=== PATIENT | female | born 1980 | race Caucasian/White ===

== ENCOUNTER 2021-12-02 06:30 | Day surgery (SDC) | payer BC ==
[2021-11-29 13:10] LABS: CARBON DIOXIDE,CO2 26.1 mmol/L (21.0-32.0); POTASSIUM,K 4.3 mmol/L (3.5-5.1)
[~2021-12-02 06:30] MED LIST: Clindamycin Phosphate in D5W 900 MG in Premix Bag 1 BAG IV SCH; GENTAMICIN IV ONE; Gentamicin Pediatric 10 MG/ML 2 ML SDV IV ONE; Lactated Ringers 1,000 ML IV SCH; SODIUM CHLORIDE 0.9% IV ONE; Sodium Chloride 0.9% 10 ML Syringe FLUSH PRN; Sodium Chloride 0.9% 2.5 ML Syringe FLUSH PRN; Sodium Chloride 0.9% 20 ML SDV IV PRN
[2021-12-02] MEDS ORDERED: Rocuronium Bromide 50 MG/5 ML Syringe ONE (07:24)
[2021-12-02] MEDS ORDERED: Dexamethasone 4 MG/ML 5 ML MDV ONE (07:24)
[2021-12-02] MEDS ORDERED: Lidocaine 2% 5 ML SDV ONE (07:24)
[2021-12-02] MEDS ORDERED: Midazolam 1 MG/ML 2 ML SDV ONE (07:24)
[2021-12-02] MEDS ORDERED: Sugammadex Sodium 200 MG/2 ML VIAL ONE (07:24)
[2021-12-02] MEDS ORDERED: Propofol 200 MG/20 ML SDV ONE (07:24)
[2021-12-02] MEDS ORDERED: Ondansetron 4 MG/2 ML SDV ONE (07:24)
[2021-12-02] MEDS ORDERED: fentaNYL 250 MCG/5 ML SDV ONE (07:25)
[2021-12-02] MEDS ORDERED: HYDROmorphone 1 MG/ML Syringe IVPUSH PRN (07:37)
[2021-12-02] MEDS ORDERED: Albuterol 0.083% 2.5 MG/3 ML Neb Soln NEB PRN (07:37)
[2021-12-02] MEDS ORDERED: Metoclopramide 10 MG/2 ML SDV IVPUSH PRN (07:37)
[2021-12-02] MEDS ORDERED: Morphine 2 MG/ML SYRINGE IVPUSH PRN (07:37)
[2021-12-02] MEDS ORDERED: Ondansetron 4 MG/2 ML SDV IVPUSH PRN ×2 (07:37→10:21)
[2021-12-02] MEDS ORDERED: Naloxone 0.4 MG/ML SDV IVPUSH PRN (07:37)
[2021-12-02] MEDS ORDERED: Methylene Blue 50 MG/10 ML Ampule ONE (07:54)
[2021-12-02] MEDS ORDERED: Bupivacaine 0.25% 30 ML SDV ONE (07:54)
[2021-12-02] MEDS ORDERED: Fluorescein 5 ML Vial ONE (08:31)
[2021-12-02] MEDS ORDERED: HYDROmorphone 2 MG/ML Syringe ONE (09:12)
[2021-12-02] MEDS ORDERED: Water For Injection, Sterile 20 ML ONE (09:14)
[2021-12-02] MEDS ORDERED: Tranexamic Acid 1,000 MG/10 ML Vial ONE (09:14)
[2021-12-02] MEDS ORDERED: Promethazine 25 MG/ML SDV IM PRN (10:21)
[2021-12-02] MEDS ORDERED: Morphine 4 MG/ML Syringe IVPUSH PRN (10:21)
[2021-12-02] MEDS ORDERED: Acetaminophen/oxyCODONE 325-5 MG Tab PO PRN (10:21)
[2021-12-02] MEDS ORDERED: Belladonna Alkaloids/Opium 16.2-30 MG Supp RECTAL PRN (10:30)
[2021-12-02] MEDS ORDERED: Lactated Ringers 1,000 ML IV SCH (10:30)
[2021-12-02] MEDS: fentaNYL 50 MCG/ML SDV IVPUSH PRN ×2 (10:33→10:50)
[2021-12-02] MEDS: Acetaminophen/oxyCODONE 325-5 MG Tab PO PRN ×2 (15:30→22:08)
[2021-12-02] MEDS: Docusate Sodium 100 MG Cap PO SCH (19:59)
[2021-12-03] MEDS: Acetaminophen/oxyCODONE 325-5 MG Tab PO PRN ×2 (04:55→10:53)
[2021-12-03 05:47] LABS: CARBON DIOXIDE,CO2 24.2 mmol/L (21.0-32.0); POTASSIUM,K 3.8 mmol/L (3.5-5.1)
[2021-12-03] MEDS: Docusate Sodium 100 MG Cap PO SCH (09:00)
== END 2021-12-03 10:59 | disposition home or self-care (01) ==
LOC: MW.SDS 06:30 → MW.OB 11:34 → MW.SDS 12-03 10:59
PROVIDERS: ATTEND Obstetrics & Gynecology
DX: N80.03 Adenomyosis of the uterus (principal); N72 Inflammatory disease of cervix uteri; N83.8 Other noninflammatory disorders of ovary, fallopian tube and broad ligament; N80.392 Deep endometriosis of the pelvic peritoneum, other specified sites; F41.9 Anxiety disorder, unspecified; F32.A Depression, unspecified; G43.909 Migraine, unspecified, not intractable, without status migrainosus; J45.909 Unspecified asthma, uncomplicated; Z79.899 Other long term (current) drug therapy; Z98.890 Other specified postprocedural states; Z87.891 Personal history of nicotine dependence; Z88.0 Allergy status to penicillin; Z90.49 Acquired absence of other specified parts of digestive tract
CPT/HCPCS: 36415; 58552; 80048; 84703; 85025; 85027; 86850; 86900; 86901; A9270; J0131; J1100; J1170; J1580; J2250; J2270; J2704; J3010; J3490; J7030; J7120; 00944; J2405